=== PATIENT | female | born 1980 | race Caucasian/White ===

== ENCOUNTER 2017-03-30 14:07 | Emergency (ER) | payer BC ==
--- NOTE | 2017-03-30 17:40 | RAD ---
HISTORY: Right-sided abdominal pain COMPARISONS: None TECHNIQUE: Multiple transverse and longitudinal ultrasound images were obtained of the right upper quadrant of the abdomen using grayscale, color Doppler, and spectral Doppler imaging. FINDINGS: LIVER: The liver is minimally echogenic and coarse in echotexture, with decreased acoustic transmission. The liver is otherwise normal in shape, size, and contour. There is normal hepatopedal flow of the portal vein on Doppler imaging. BILIARY TREE: There is no intrahepatic or extrahepatic biliary dilatation. The common duct measures 0.4 cm. GALLBLADDER: The gallbladder is well-visualized. There is no cholelithiasis, gallbladder wall thickening, pericholecystic fluid, or sonographic Nunez sign. PANCREAS: The head of the pancreas is unremarkable. The tail of the pancreas is not well visualized secondary to overlying bowel gas. RIGHT KIDNEY: The right kidney is normal in shape, size, contour, and echogenicity. There is no hydronephrosis or nephrolithiasis. The right kidney measures 12.5 x 4.3 x 3.9 cm. AORTA AND IVC: The aorta and IVC are unremarkable. Normal arterial waveforms are identified within the aorta on spectral Doppler imaging. FLUID: There are no pleural effusions. There is no free fluid within the hepatorenal recess. OTHER FINDINGS: None. IMPRESSION: MILDLY ECHOGENIC LIVER SUGGESTIVE OF FATTY INFILTRATION. NO ACUTE SONOGRAPHIC PATHOLOGY OF THE VISUALIZED PORTION OF THE ABDOMEN.
[2017-03-30 18:11] LABS: ABS Basophils 0.1 10^3/ul (0-0.2); ABS Eosinophils 0.1 10^3/ul (0-0.6); ABS Lymphocytes 2.4 10^3/ul (1.0-4.8); ABS Monocytes 0.6 10^3/ul (0-0.8); ABS Neutrophils 10.7 10^3/ul (1.5-7.7); ABS Nucleated RBC 0 10^3/ul; Eosinophil % 0.9 % (0-6); Hematocrit 43 % (35-47); Hemoglobin 14.3 g/dl (12.0-16.0); Lymphocyte % 17.5 % (25-47); Mean Corpuscular HGB Conc 34 g/dl (31-36); Mean Corpuscular Hemoglobin 31 pg (27-31); Mean Corpuscular Volume 92 fL (80-97); Mean Platelet Volume 9 um3 (7.4-10.4); Nucleated Red Blood Cells % 0; Platelet Count 237 10^3/ul (150-450); Red Blood Count 4.64 10^6/ul (4.0-5.4); Red Cell Distribution Width 13 % (10.5-15); White Blood Count 13.9 10^3/ul (3.5-10.8)
[2017-03-30 18:36] LABS: EGFR Non-African American 86.6 (>60)
[2017-03-30 18:54] LABS: Urine Appearance Clear; Urine Blood 1+ (Negative); Urine Color Yellow; Urine Ketones Negative (Negative); Urine Protein Negative (Negative); Urine Specific Gravity 1.006 (1.010-1.030); Urine Urobilinogen Negative (Negative)
--- NOTE | 2017-03-30 19:00 | ED ---
GI/ HPI - HPI Summary HPI Summary: 37F presents with abdominal pain for 2 days. She states the pain started in her back. She states it feels like muscle spams in her back that radiates to her front. She states she took some ibuprofen which helped the back pain and then she developed epigastric pain. She states the pain is better with food. She states ibuprofen makes it worst. She denies any blood in her stool. She denies any history of ulcer and had a normal scope a year ago. She states she has a history of acid reflux. She denies any fever but admits to chills. She admits to nausea but denies any vomiting. She denies any dysuria, hematuria, urgency, or flank pain. She states Tylenol helped the pain but not as much as ibuprofen for the back pain. Today the pain started over her lower right ribs. She denies any SOB. She denies any recent travel or being on control. She states she has history of elevated wbc count that was discovered at primary last year and that she had repeated and was still elevated. She denies any diarrhea or constipation. She denies any loss of bowel or bladder or saddle anasethesia. - History of Current Complaint Chief Complaint: EDAbdPain Time Seen by Provider: 03/30/17 18:27 Stated Complaint: UPPER BACK PAIN Hx Last Menstrual Period: 08/24/15 Pain Intensity: 8 - Allergy/Home Medications Allergies/Adverse Reactions: Allergies Allergy/AdvReac Type Severity Reaction Status Date / Time No Known Allergies Allergy Verified 03/30/17 18:33 Home Medications: Home Medications Omeprazole CAP* [Prilosec CAP* 20 MG] 40 mg PO DAILY PRN 03/30/17 [History Confirmed 03/30/17] PMH/Surg Hx/FS Hx/Imm Hx Endocrine/Hematology History: Denies: Hx Diabetes, Hx Thyroid Disease Cardiovascular History: Denies: Hx Hypertension Respiratory History: Denies: Hx Asthma, Hx Chronic Obstructive Pulmonary Disease (COPD) GI History: Denies: Hx Ulcer Infectious Disease History: No Infectious Disease History: Reports: Hx Shingles Denies: Hx Hepatitis, Hx Human Immunodeficiency Virus (HIV), Traveled Outside the [place] in Last 30 Days - Social History Alcohol Use: Weekly Substance Use Type: Reports: Marijuana Smoking Status (MU): Former Smoker Review of Systems Negative: Fever Negative: Chest Pain Negative: Shortness Of Breath Positive: Abdominal Pain Positive: Myalgia - right side thoracic back pain All Other Systems Reviewed And Are Negative: Yes Physical Exam Triage Information Reviewed: Yes Vital Signs On Initial Exam: Initial Vitals Temp Pulse Resp BP Pulse Ox 100 F 74 16 137/93 97 03/30/17 14:19 03/30/17 14:19 03/30/17 14:19 03/30/17 14:19 03/30/17 14:19 Vital Signs Reviewed: Yes Appearance: Positive: Well-Appearing Skin: Positive: Warm, Dry Head/Face: Positive: Normal Head/Face Inspection Eyes: Positive: Normal, EOMI, PIEDAD, Conjunctiva Clear Respiratory/Lung Sounds: Positive: Clear to Auscultation, Breath Sounds Present , Other - nontender rib Cardiovascular: Positive: Normal, RRR Abdomen Description: Positive: Nontender, Soft Bowel Sounds: Positive: Present Musculoskeletal: Positive: Strength/ROM Intact - back, Other - nontender back Neurological: Positive: Normal Psychiatric: Positive: Normal - Miladys Coma Scale Coma Scale Total: 15 Diagnostics - Vital Signs Vital Signs Temp Pulse Resp BP Pulse Ox 03/30/17 18:30 92 122/77 98 03/30/17 18:28 92 98 03/30/17 18:26 123/70 03/30/17 15:56 98.3 F 72 18 122/59 97 03/30/17 14:19 100 F 74 16 137/93 97 - Laboratory Lab Results: Lab Results 03/30/17 03/30/17 03/30/17 Range/Units 17:52 17:52 17:52 WBC 13.9 H (3.5-10.8) 10^3/ul RBC 4.64 (4.0-5.4) 10^6/ul Hgb 14.3 (12.0-16.0) g/dl Hct 43 (35-47) % MCV 92 (80-97) fL MCH 31 (27-31) pg MCHC 34 (31-36) g/dl RDW 13 (10.5-15) % Plt Count 237 (150-450) 10^3/ul MPV 9 (7.4-10.4) um3 Neut % (Auto) 76.7 (38-83) % Lymph % (Auto) 17.5 L (25-47) % Rowan % (Auto) 4.2 (1-9) % Eos % (Auto) 0.9 (0-6) % Baso % (Auto) 0.7 (0-2) % Absolute Neuts (auto) 10.7 H (1.5-7.7) 10^3/ul Absolute Lymphs (auto) 2.4 (1.0-4.8) 10^3/ul Absolute Monos (auto) 0.6 (0-0.8) 10^3/ul Absolute Eos (auto) 0.1 (0-0.6) 10^3/ul Absolute Basos (auto) 0.1 (0-0.2) 10^3/ul Absolute Nucleated RBC 0 10^3/ul Nucleated RBC % 0 D-Dimer, Quantitative < 200 (Less Than 230) ng/mL Sodium 139 (133-145) mmol/L Potassium 3.6 (3.5-5.0) mmol/L Chloride 107 (101-111) mmol/L Carbon Dioxide 27 (22-32) mmol/L Anion Gap 5 (2-11) mmol/L BUN 9 (6-24) mg/dL Creatinine 0.76 (0.51-0.95) mg/dL Est GFR ( Amer) 111.4 (>60) Est GFR (Non-Af Amer) 86.6 (>60) BUN/Creatinine Ratio 11.8 (8-20) Glucose 118 H (70-100) mg/dL Calcium 9.4 (8.6-10.3) mg/dL Total Bilirubin 0.30 (0.2-1.0) mg/dL AST 12 L (13-39) U/L ALT 13 (7-52) U/L Alkaline Phosphatase 31 L (34-104) U/L C-React Prot High Sens 2.80 mg/L Total Protein 7.0 (6.4-8.9) g/dL Albumin 4.6 (3.2-5.2) g/dL Globulin 2.4 (2-4) g/dL Albumin/Globulin Ratio 1.9 (1-3) Lipase 19 (11.0-82.0) U/L Beta HCG, Quant < 0.60 mIU/mL Urine Color Urine Appearance Urine pH (5-9) Ur Specific [place] (1.010-1.030) Urine Protein (Negative) Urine Ketones (Negative) Urine Blood (Negative) Urine Nitrate (Negative) Urine Bilirubin (Negative) Urine Urobilinogen (Negative) Ur Leukocyte Esterase (Negative) Urine WBC (Auto) (Absent) Urine RBC (Auto) (Absent) Ur Squamous Epith Cells (Absent) Urine Bacteria (Absent) Urine Glucose (Negative) 03/30/17 Range/Units 18:22 WBC (3.5-10.8) 10^3/ul RBC (4.0-5.4) 10^6/ul Hgb (12.0-16.0) g/dl Hct (35-47) % MCV (80-97) fL MCH (27-31) pg MCHC (31-36) g/dl RDW (10.5-15) % Plt Count (150-450) 10^3/ul MPV (7.4-10.4) um3 Neut % (Auto) (38-83) % Lymph % (Auto) (25-47) % Rowan % (Auto) (1-9) % Eos % (Auto) (0-6) % Baso % (Auto) (0-2) % Absolute Neuts (auto) (1.5-7.7) 10^3/ul Absolute Lymphs (auto) (1.0-4.8) 10^3/ul Absolute Monos (auto) (0-0.8) 10^3/ul Absolute Eos (auto) (0-0.6) 10^3/ul Absolute Basos (auto) (0-0.2) 10^3/ul Absolute Nucleated RBC 10^3/ul Nucleated RBC % D-Dimer, Quantitative (Less Than 230) ng/mL Sodium (133-145) mmol/L Potassium (3.5-5.0) mmol/L Chloride (101-111) mmol/L Carbon Dioxide (22-32) mmol/L Anion Gap (2-11) mmol/L BUN (6-24) mg/dL Creatinine (0.51-0.95) mg/dL Est GFR ( Amer) (>60) Est GFR (Non-Af Amer) (>60) BUN/Creatinine Ratio (8-20) Glucose (70-100) mg/dL Calcium (8.6-10.3) mg/dL Total Bilirubin (0.2-1.0) mg/dL AST (13-39) U/L ALT (7-52) U/L Alkaline Phosphatase (34-104) U/L C-React Prot High Sens mg/L Total Protein (6.4-8.9) g/dL Albumin (3.2-5.2) g/dL Globulin (2-4) g/dL Albumin/Globulin Ratio (1-3) Lipase (11.0-82.0) U/L Beta HCG, Quant mIU/mL Urine Color Yellow Urine Appearance Clear Urine pH 6.0 (5-9) Ur Specific [place] 1.006 L (1.010-1.030) Urine Protein Negative (Negative) Urine Ketones Negative (Negative) Urine Blood 1+ H (Negative) Urine Nitrate Negative (Negative) Urine Bilirubin Negative (Negative) Urine Urobilinogen Negative (Negative) Ur Leukocyte Esterase Negative (Negative) Urine WBC (Auto) Trace(0-5/hpf) (Absent) Urine RBC (Auto) Trace(0-2/hpf) (Absent) Ur Squamous Epith Cells Present H (Absent) Urine Bacteria 1+ H (Absent) Urine Glucose Negative (Negative) Result Diagrams: 03/30/17 17:52 03/30/17 17:52 Lab Statement: Any lab studies that have been ordered have been reviewed, and results considered in the medical decision making process. GIGU Course/Dx - Course Course Of Treatment: 37F presents with abdominal pain for 2 days. She states the pain started in her back. She states it feels like muscle spams in her back that radiates to her front. She states she took some ibuprofen which helped the back pain and then she developed epigastric pain. She states the pain is better with food. She states ibuprofen makes it worst. She denies any blood in her stool. She denies any history of ulcer and had a normal scope a year ago. She states she has a history of acid reflux. She denies any fever but admits to chills. She admits to nausea but denies any vomiting. She denies any dysuria, hematuria, urgency, or flank pain. She states Tylenol helped the pain but not as much as ibuprofen for the back pain. Today the pain started over her lower right ribs. She denies any SOB. She denies any recent travel or being on control. She states she has history of elevated wbc count that was discovered at primary last year and that she had repeated and was still elevated. She denies any diarrhea or constipation. She denies any loss of bowel or bladder or saddle anasethesia. on exam mild tenderness over right side of thoracic back. abdomen soft nontender. urine does not appear to be infection. normal d-dimer. wbc elevated but no left shift and crp normal. u/ s normal. discussed results with patient and will not do a CT at this time. patient believes wbc elevation is chronic. will treat ab pain with omprezaole as could be ulcer. h/h normal at this time and patient not having melena. will give referral to GI. back pain could be unrelated and be muscular so will try lidocaine patch. patient understand and agrees with plan. - Diagnoses Differential Diagnoses - Female: Gall Bladder Disease Provider Diagnoses: Back pain, Abdominal pain Discharge - Discharge Plan Condition: Good Disposition: HOME Prescriptions: Lidocaine PATCH 5%* [Lidoderm 5% Patch*] 1 patch TRANSDERM DAILY #7 patch Omeprazole CAP* [Prilosec CAP* 20 MG] 20 mg PO DAILY #14 cap. Patient Education Materials: Diet for Stomach Ulcers and Gastritis (ED), Back Pain (ED) Referrals: Elver Cummings MD [Medical Doctor] - Sarahy Wynn MD [Primary Care Provider] - Additional Instructions: Take omperazole once a day Take Tylenol for pain every 6 hours Apply lidocaine patch to area once a day for back pain Follow up with GI if no improvement in abdominal pain after trail of acid suppression Follow up with primary within 5 days Return to ED if develop any new or worsening symptoms
[2017-03-30] MEDS ORDERED: Lidocaine PATCH 5%* 1 PATCH TRANSDERM ONE (19:10)
[2017-03-30 19:27] VITALS: BP 115/70
== END 2017-03-30 19:25 | disposition home or self-care (01) ==
LOC: ED 14:07
DX: M54.9 Dorsalgia, unspecified (principal); R10.9 Unspecified abdominal pain; Z87.891 Personal history of nicotine dependence
CPT/HCPCS: 36415; 76705; 80053; 81003; 81015; 83690; 84702; 85025; 85379; 86141; 87086; 99283; A9270-GY

== ENCOUNTER 2019-01-28 07:32 | Emergency (ER) | payer BC ==
[2019-01-28 07:44] VITALS: BP 148/98
--- NOTE | 2019-01-28 08:14 | UC ---
Lower Extremity/Ankle HPI - HPI Summary HPI Summary: ONSET OF LEFT MEDIAL HEEL PAIN YESTERDAY. PATIENT NOTICED IT WHILE SHE WAS WALKING AROUND AT WORK. NO DISCRETE INJURY OR TRAUMA. NO SWELLING OR BRUISING. STATES HER CAT SCRATCHED HER A FEW WEEKS AGO IN THE SAME AREA. HEALED WITHOUT DIFFICULTY AFTER A DAY OR SO AND SHE HAS NOT HAD ANY DISCOMFORT THERE UNTIL NOW. - History of Current Complaint Chief Complaint: UCLowerExtremity Stated Complaint: foot PAIN Time Seen by Provider: 01/28/19 07:59 Hx Obtained From: Patient Hx Last Menstrual Period: 1.5 weeks ago Onset/Duration: Gradual Onset, Lasting Days - 1 DAY, Still Present Severity Initially: Moderate Severity Currently: Moderate Pain Intensity: 7 Pain Scale Used: 0-10 Numeric Aggravating Factor(s): Standing, Ambulation Alleviating Factor(s): Rest, Elevation Able to Bear Weight: Yes - Allergies/Home Medications Allergies/Adverse Reactions: Allergies Allergy/AdvReac Type Severity Reaction Status Date / Time No Known Allergies Allergy Verified 01/28/19 07:43 Home Medications: Home Medications SUMAtriptan TAB* [Imitrex TAB*] 25 mg PO . NEEDED PRN 01/28/19 [History Confirmed 01/28/19] PMH/Surg Hx/FS Hx/Imm Hx GI/ History: Gastroesophageal Reflux, Ulcer Neurological History: Migraine - Surgical History Surgical History: None - Social History Alcohol Use: Weekly Substance Use Type: Marijuana Smoking Status (MU): Former Smoker Review of Systems All Other Systems Reviewed And Are Negative: Yes Constitutional: Positive: Negative Skin: Positive: Negative Respiratory: Positive: Negative Cardiovascular: Positive: Negative Gastrointestinal: Positive: Negative Musculoskeletal: Positive: Other: - LEFT HEEL PAIN. Negative: Arthralgia, Decreased ROM, Edema Physical Exam Triage Information Reviewed: Yes Appearance: Well-Appearing, No Pain Distress, Well-Nourished Vital Signs: Initial Vital Signs Temp 99 F 01/28/19 07:38 Pulse 83 01/28/19 07:38 Resp 15 01/28/19 07:38 BP 148/98 01/28/19 07:38 Pulse Ox 99 01/28/19 07:38 Vital Signs Reviewed: Yes Eyes: Positive: Conjunctiva Clear ENT: Positive: Hearing grossly normal Neck: Positive: Supple Respiratory: Positive: No respiratory distress, No accessory muscle use Cardiovascular: Positive: Pulses Normal Abdomen Description: Positive: Soft Musculoskeletal: Positive: ROM Intact, No Edema, Other: - TTP SOFT TISSUES LEFT HEEL MEDIALLY. ACHILLES INTACT AND NON TENDER. NOT TENDER OVER PLANTAR FASCIA. NO CLEAR BONY TENDERNESS. Neurological: Positive: Alert Psychological: Positive: Age Appropriate Behavior Skin: Negative: Rashes Diagnostics - Radiology LEFT FOOT XRAYS Radiology Interpretation Completed By: Radiologist Summary of Radiographic Findings: NEGATIVE EXAM Lower Extremity Course/Dx - Course Course Of Treatment: X-RAY OF LEFT FOOT TODAY UNREMARKABLE. PATIENT HAS POINT TENDERNESS TO HER LEFT MEDIAL HEEL ON PHYSICAL EXAM BUT NO OTHER ABNORMAL SIGNS. NO BRUISING, SWELLING, REDNESS, FLUCTUANCE OR INDURATION. EXAM NOT CONSISTENT WITH INJURY TO ANY PARTICULAR TENDON OR LIGAMENT. PRESENTATION IS NOT CONSISTENT WITH PLANTAR FASCIITIS. UNLIKELY TO BE RELATED TO CAT SCRATCH SHE HAD COMPLETELY RECOVERED. ADVISED CONSERVATIVE MANAGEMENT WITH REST, ICE, ELEVATION AND OTC MEDICATIONS FOR PAIN. FOLLOW-UP WITH ORTHOPEDICS IF HER SYMPTOMS ARE NOT IMPROVING OVER THE NEXT 1-2 WEEKS. - Differential Dx/Diagnosis Provider Diagnosis: Pain of left heel Discharge ED - Sign-Out/Discharge Documenting (check all that apply): Patient Departure All imaging exams completed and their final reports reviewed: Yes - Discharge Plan Condition: Stable Disposition: HOME Referrals: Natasha Lyn MD [Medical Doctor] - 2 Weeks Sarahy Wynn MD [Primary Care Provider] - If Needed Additional Instructions: X-RAY TODAY UNREMARKABLE FOR FRACTURE, DISLOCATION OR NOTICEABLE SOFT TISSUE INJURY. UNCLEAR ETIOLOGY OF THE DISCOMFORT IN YOUR HEEL. TAKE TYLENOL NEEDED. REST, ICE, ELEVATE. FOLLOW-UP WITH ORTHOPEDICS IF YOUR SYMPTOMS ARE NOT IMPROVING OVER THE NEXT 1-2 WEEKS. - Billing Disposition and Condition Condition: STABLE Disposition: Home
== END 2019-01-28 09:21 | disposition home or self-care (01) ==
LOC: UCEAST 07:32
DX: M79.672 Pain in left foot (principal); Z87.891 Personal history of nicotine dependence
CPT/HCPCS: 99211; G0463